=== PATIENT | male | born 1975 | race Caucasian/White ===

== ENCOUNTER 2017-11-29 16:19 | Emergency (ER) | payer BC ==
[~2017-11-29] VITALS: Ht 177.8 cm; Wt 92.7 kg
[2017-11-29] MEDS ORDERED: MORPHINE SULFATE 4 MG/ML SYRINGE IM ONE (17:15)
[2017-11-29] MEDS ORDERED: ONDANSETRON HCL 4 MG/2 ML VIAL IM ONE (17:15)
[2017-11-29 17:58] VITALS: BP 152/99
[2017-11-29] MEDS ORDERED: SODIUM CHLORIDE 0.9% 250 ML IRRIG SOLUTION BOTTLE IRRIG ONE (18:00)
[2017-11-29] MEDS ORDERED: BACITRACIN 0.9 GM PACKET OINTMENT TP ONE (18:00)
== END 2017-11-29 19:00 | disposition home or self-care (01) ==
LOC: EMS 16:21
DX: S82.62XA Displaced fracture of lateral malleolus of left fibula, initial encounter for closed fracture (principal); S62.102A Fracture of unspecified carpal bone, left wrist, initial encounter for closed fracture; V28.4XXA Motorcycle driver injured in noncollision transport accident in traffic accident, initial encounter; Y93.89 Activity, other specified; Y92.89 Other specified places as the place of occurrence of the external cause; Y99.8 Other external cause status
CPT/HCPCS: 29125; 29515; 73110; 73610; 96372; 99284; J2270; J2405